=== PATIENT | male | born 1955 | race Caucasian/White ===

== ENCOUNTER 2020-11-27 16:57 | Emergency (ER) | payer BC, SELFPAY ==
[2020-11-27 17:00] VITALS: BP 148/88; PULSE 91; RESP 20; TEMP 36.8; O2SAT 97
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
== END 2020-11-27 18:55 | disposition home or self-care (01) ==
PROVIDERS: Emergency Provider Emergency Medicine
DX: S05.02XA Injury of conjunctiva and corneal abrasion without foreign body, left eye, initial encounter (principal); W22.8XXA Striking against or struck by other objects, initial encounter
CPT/HCPCS: 99283; A9270